=== PATIENT | male | born 2000 | race African-American/Black ===

== ENCOUNTER 2023-08-01 11:05 | Emergency (ER) | payer BC, SELFPAY ==
[2023-08-01 11:23] VITALS: BP 134/68; PULSE 88; RESP 19; TEMP 36.6; O2SAT 98; BMI 29.2
--- NOTE | 2023-08-01 11:26 | ED.URI ---
HPI - URI/Sore Throat General Chief Complaint: General Medical Stated Complaint: Sore throat Time Seen by Provider: 08/01/23 14:19 Source: patient Mode of arrival: ambulatory History of Present Illness HPI Narrative: 22-year-old male with presentation of sore throat and difficulty swallowing for approximately a month, patient has been on a course of amoxicillin without good resolution and then followed with a course of Augmentin. Related Data Previous Rx's Medication Instructions Recorded clindamycin HCl 300 mg capsule 600 mg (2 x 300 mg) PO TID 10 days 08/01/23 #60 caps prednisone 50 mg tablet 50 mg PO DAILY 4 days #4 tabs 08/01/23 Allergies Allergy/AdvReac Type Severity Reaction Status Date / Time No Known Allergies Allergy Verified 08/01/23 11:22 Review of Systems Review of Systems: Pertinent positives and negatives as stated in HPI [facility] Past Medical History Source: nursing notes reviewed Social History Social History Advance Directives: No Advance Directives Information Provided: No Physical Exam Vital Signs: Vital Signs: Last Vital Signs Temp 98 F 08/01/23 11:23 Pulse 88 08/01/23 11:23 Resp 19 08/01/23 11:23 BP 134/68 08/01/23 11:23 Pulse Ox 98 08/01/23 11:23 O2 Del Method Room Air 08/01/23 11:23 BMI result Body Mass Index 29.2 VITAL SIGNS: Reviewed. GENERAL: Well developed, well nourished, in no acute distress. HEAD: Normocephalic/atraumatic EYES: PERRLA, EOMI EARS: Ext canals without abnormality, TMs non-bulging and non-erythematous NOSE: Nares patent bilateral OROPHARYNX: no oral lesions noted, posterior pharynx mildly erythematous with edematous uvula and erythematous tonsillar enlargement/erythema/exudates NECK: Supple, no adenopathy LUNGS: Normal breath sounds. No adventitious sounds or accessory muscle use. SpO2<98> CARDIOVASCULAR: Regular rate and rhythm without noted murmurs ABDOMEN: Soft, non-tender, non-distended with bowel sounds. MUSCULOSKELETAL: No tenderness, deformities, or effusions noted on gross inspection. EXTREMITIES: No cyanosis, clubbing or edema. SKIN: Inspection of the skin reveals no rashes NEUROLOGIC: Alert and oriented x 4. Strength and sensation to light touch were grossly intact x 4. Course Course Course Narrative: This is a rapid medical exam. Deferred additional HPI, ROS, PE to primary provider. 22-year-old male with a history of peritonsillar abscess presents the ER with complaints of sore throat x 1 month despite a course of amoxicillin and a course of Augmentin. On exam patient has a right peritonsillar abscess. Tolerating secretions. Will need labs, viral testing, strep testing and CT VSS Medications Administered Generic Name Dose Route Start Last Admin Trade Name Freq PRN Reason Stop Dose Admin Sodium Chloride 1,000 mls @ 999 mls/hr 08/01/23 14:17 08/01/23 14:35 Ns IV 08/01/23 15:17 999 mls/hr .[id number] STA Administration Discontinued Medications Generic Name Dose Route Start Last Admin Trade Name Freq PRN Reason Stop Dose Admin Dexamethasone Sodium Phosphate 10 mg 08/01/23 14:17 08/01/23 14:32 Dexamethasone Sod Phosphate 10 Mg/Ml Vial IVPUSH 08/01/23 14:18 10 mg ONCE ONE Administration Clindamycin Phosphate 600 mg in 50 mls @ 100 mls/hr 08/01/23 14:17 08/01/23 14:37 Cleocin IV 08/01/23 14:46 100 mls/hr ONCE ONE Administration Ketorolac Tromethamine 30 mg 08/01/23 14:17 08/01/23 14:32 Ketorolac Tromethamine 30 Mg/Ml Vial IVPUSH 08/01/23 14:18 30 mg ONCE ONE Administration Medical Decision Making Medical Decision Making [facility] Narrative: 22-year-old male with history and clinical presentation most consistent with peritonsillar abscess, patient has no trismus, is tolerating oral secretions. I reviewed all investigations and there is a leukocytosis with a left shift but no anemia or thrombocytopenia. Chemistry indices without CHINO/electrolytes/liver enzyme derangements. Viral testing negative for influenza/RSV/COVID/rapid strep I attempted twice to aspirate purulence material with scant product obtained, suspect that this is secondary to this having been ongoing for 1 month. Patient is discharged with course of steroids as well as clindamycin with instructions to return to this emergency room on Wednesday but if he has acute worsening of symptoms he should return prior to that. He was also provided with an ENT referral. Differential Diagnosis Differential Diagnoses: The differential diagnosis associated with the presentation includes Please see the discussion above Admission/Observation Consideration of admission/observation: Escalation of care including admission/observation considered Please see the discussion above Lab Data MDM Lab Attestation statement: I reviewed the patient's lab results. Please see the discussion above 08/01/23 12:07 08/01/23 12:07 Labs: Lab Results 08/01/23 Range/Units 12:07 WBC 13.6 H (4.8-10.8) X10*3/uL RBC 5.66 (4.60-5.80) X10*6/uL Hgb 16.4 (14.0-18.0) g/dl Hct 48.1 (42.0-52.0) % MCV 85.0 (80.0-98.0) fL MCH 29.0 (27.0-33.0) pg MCHC 34.1 (31.0-36.0) g/dl RDW 12.9 (11.0-16.0) % Plt Count 204 (160-400) X10*3/uL MPV 8.6 L (9.4-12.4) fL Immature Gran % (Auto) 0.5 H (0.0-0.4) % Neut % (Auto) 83.2 H (45-73) % Lymph % (Auto) 9.0 L (20-40) % Howard % (Auto) 6.8 (2-11) % Eos % (Auto) 0.1 (0-4) % Baso % (Auto) 0.4 (0-2) % Lymph # (Auto) 1.2 (1.2-4.9) X10*3/uL Howard # (Auto) 0.9 (0.1-1.2) X10*3/uL Eos # (Auto) 0.0 (0.0-0.4) X10*3/uL Baso # (Auto) 0.1 (0.0-0.2) X10*3/uL Abs Immat Gran (auto) 0.07 H (0.00-0.03) X10*3/uL Absolute Neuts (auto) 11.3 H (2.0-8.3) x10*3/uL Absolute Nucleated RBC 0.000 (0.0-0.012) X10*3/uL Nucleated RBC % (auto) 0.0 (0.0-0.2) /100WBC Sodium 139 (135-145) mmol/L Potassium 4.1 (3.3-5.1) mmol/L Chloride 102 (96-108) mmol/L Carbon Dioxide 26 (22-29) mmol/L Anion Gap 15 (12-20) BUN 12 (9-16) mg/dL Creatinine 1.10 (0.5-1.4) mg/dL Estim Creat Clear Calc 96.2 Estimated GFR > 60 Random Glucose 94 (60-115) mg/dL Lactic Acid 0.8 (0.5-2.0) mmol/L Calcium 9.7 (8.4-10.2) mg/dL Total Bilirubin 0.8 (0.0-1.0) mg/dL Direct Bilirubin 0.3 (0.0-0.5) mg/dL AST 24 (5-37) U/L ALT 24 (0-40) U/L Alkaline Phosphatase 91 (39-117) U/L Total Protein 8.0 (6.5-8.0) g/dL Albumin 4.5 (3.5-5.0) g/dL Influenza Type A (PCR) NEGATIVE (Negative) Influenza Type B (PCR) NEGATIVE (Negative) RSV RNA Qual (PCR) NEGATIVE (Negative) SARS-CoV-2 RNA (RT-PCR) NEGATIVE (Negative) S. pyogenes GrpA RAFFI Negative (Negative) Procedures Abscess I/D Site: other (Peritonsillar) Side (if applicable): right Technique: needle aspiration Amount of fluid expressed (mL): 1 Sent for culture/gram staining?: No Irrigation: Yes Packing used?: none Discharge Plan Discharge Clinical Impression: Abscess, peritonsillar Patient Disposition: Home, Self-Care Instructions: Peritonsillar Abscess (ED) Additional Instructions: 1. Complete the entire course of antibiotics as prescribed. You may utilize [id number] Tylenol/ibuprofen as needed for discomfort. 2. You will return to this emergency room on Wednesday for a checkup. However, if your difficulty swallowing or you experience any difficulty with breathing you will return to the emergency room immediately. 3. You are being provided with an Ear, Nose, Throat specialist referral however you may reach out to the healthcare center at your school to see if they can assist you with this referral. I recommend that you call the office 1st thing tomorrow morning. Prescriptions: New prednisone 50 mg tablet 50 mg PO DAILY 4 Days Qty: 4 0RF clindamycin HCl 300 mg capsule 600 mg PO TID 10 Days Qty: 60 0RF Referrals: Zaid Delcid [Physician] -
[2023-08-01 12:15] LABS: MANUAL DIFF FLAG NO
[2023-08-01 12:17] LABS: Basophils Absolute Auto 0.1 X10*3/uL (0.0-0.2); Basophils Percent Auto 0.4 % (0-2); Eosinophils Percent Auto 0.1 % (0-4); Hematocrit 48.1 % (42.0-52.0); Hemoglobin 16.4 g/dl (14.0-18.0); Imm Gran Abs Auto 0.07 X10*3/uL (0.00-0.03); Imm Gran Pct Auto 0.5 % (0.0-0.4); Lymphocytes Absolute Auto 1.2 X10*3/uL (1.2-4.9); Mean Corpuscular HGB Conc 34.1 g/dl (31.0-36.0); Mean Platelet Volume 8.6 fL (9.4-12.4); Monocytes Absolute Auto 0.9 X10*3/uL (0.1-1.2); Monocytes Percent Auto 6.8 % (2-11); Neutrophils Absolute Auto 11.3 x10*3/uL (2.0-8.3); Neutrophils Percent Auto 83.2 % (45-73); Platelet Count 204 X10*3/uL (160-400); Red Blood Count 5.66 X10*6/uL (4.60-5.80); Red Cell Distribution Width 12.9 % (11.0-16.0); White Blood Count 13.6 X10*3/uL (4.8-10.8)
[2023-08-01 12:27] LABS: IDNOW Serial# 58CA691E
[2023-08-01 12:28] LABS: Strep A Nucleic Acid Negative (Negative)
[2023-08-01 12:31] LABS: Lactic Acid 0.8 mmol/L (0.5-2.0)
[2023-08-01 12:33] LABS: Alanine Aminotransferase 24 U/L (0-40); Albumin Level 4.5 g/dL (3.5-5.0); Alkaline Phosphatase 91 U/L (39-117); Anion Gap 15 (12-20); Aspartate Amino Transferase 24 U/L (5-37); Bilirubin Direct 0.3 mg/dL (0.0-0.5); Bilirubin Total 0.8 mg/dL (0.0-1.0); Blood Urea Nitrogen 12 mg/dL (9-16); Calcium 9.7 mg/dL (8.4-10.2); Carbon Dioxide 26 mmol/L (22-29); Chloride 102 mmol/L (96-108); Creatinine Clr Calc Pharmacy 96.2; Estimated Glomerular Filt Rate > 60; Glucose Random 94 mg/dL (60-115); Potassium 4.1 mmol/L (3.3-5.1); Sodium 139 mmol/L (135-145)
[2023-08-01 12:59] LABS: Influenza A PCR NEGATIVE (Negative); Influenza B PCR NEGATIVE (Negative); Resp Syncy Virus RNA Qual PCR NEGATIVE (Negative); SARS COV2 PCR INHOUSE NEGATIVE (Negative)
[2023-08-01] MEDS: Ketorolac Tromethamine 30 MG/ML VIAL IVPUSH (14:32)
[2023-08-01] MEDS: dexAMETHasone sod phosphate 10 MG/ML VIAL IVPUSH (14:32)
[2023-08-01] MEDS: 0.9 % Sodium Chloride 1,000 ML 999 ML IV (14:35)
[2023-08-01] MEDS: Clindamycin Phosphate/D5W 600 MG/50 ML PIGGYBACK 100 MG IV (14:37)
== END 2023-08-01 15:32 | disposition home or self-care (01) ==
PROVIDERS: Nurse Practitioner Family; Emergency Provider Student in an Organized Health Care Education/Training Program
DX: J36 Peritonsillar abscess (principal); J06.9 Acute upper respiratory infection, unspecified; Z11.52 Encounter for screening for COVID-19; Z20.822 Contact with and (suspected) exposure to COVID-19; Z79.899 Other long term (current) drug therapy
CPT/HCPCS: 0241U; 42700; 80048; 80076; 83605; 85025; 87040; 87651; 96361; 96374; 96375; 99284; J0736; J1100; J1885

== ENCOUNTER 2023-08-03 16:52 | Emergency (ER) | payer BC, SELFPAY ==
[2023-08-03 18:21] VITALS: BP 113/49; PULSE 74; RESP 16; TEMP 36.6; O2SAT 97; BMI 28.7
[2023-08-03 19:25] VITALS: BP 116/51; PULSE 59; RESP 14; TEMP 36.9; O2SAT 98
[2023-08-03 21:09] VITALS: BP 117/51; PULSE 60; RESP 14; TEMP 37; O2SAT 98
--- NOTE | 2023-08-03 21:35 | ED.GENADULT ---
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 He feels better overall and the swelling is getting better. He came here for ENT referral as Dr. Delcid is not able to see him MD complaint: ENT needs Onset (ago): day(s) (3) Location: mouth Radiation: non-radiation Severity: mild Pain Consistency: intermittent Relieving factors: none Exacerbating factors: other (swallowing) Associated symptoms: denies other symptoms Treatments prior to arrival: other (steroids and antibiotics) Related Data Previous Rx's Medication Instructions Recorded clindamycin HCl 300 mg capsule 600 mg (2 x 300 mg) PO TID 10 days 08/01/23 #60 caps prednisone 50 mg tablet 50 mg PO DAILY 4 days #4 tabs 08/01/23 Allergies Allergy/AdvReac Type Severity Reaction Status Date / Time No Known Allergies Allergy Verified 08/01/23 11:22 Review of Systems Review of Systems: Constitutional : No Fever, No Chills, No Fatigue ENT/Mouth : pos sore throat, No Rhinorrhea Eyes: No Eye Pain, No Swelling, No Redness Cardiovascular : No Chest Pain, No SOB, No Dyspnea on Exertion Respiratory : No Cough, No Sputum Gastrointestinal : No Nausea, No Vomiting, No Diarrhea, No abdominal Pain Musculoskeletal : No joint pain, No Myalgias, No Joint Swelling Skin : No Skin Lesions, No rash Neuro : No Weakness, No Numbness, No Dizziness, no Headache Heme/Lymph: No Bruising, No Bleeding, pos Lymphadenopathy All other systems reviewed and are negative PMFSH Past Medical History Attestation statement: The following information was validated with the patient. Source: old records reviewed Medical History Abscess, peritonsillar Social History Social History (Updated 08/03/23 @ 21:42 by Emma Mario DO) Patient Tobacco Use Status: Never used Tobacco Physical Exam ED Vital Signs: Vital Signs - 24 hr 08/03/23 18:21 08/03/23 19:25 08/03/23 21:09 Temperature 97.9 F 98.4 F 98.6 F Pulse Rate 74 59 60 Respiratory Rate 16 14 14 Blood Pressure 113/49 L 116/51 L 117/51 L Pulse Oximetry 97 98 98 Oxygen Delivery Method Room Air Room Air Room Air BMI result Body Mass Index 28.7 Appearance: Alert. Oriented X3. No acute distress. Eyes: Pupils equal, round and reactive to light. ENT: Pharynx mild swelling R side no sublingual or submandibular swelling no preuricular swelling, no trismus no drooling and normal voice, uvula is midline Neck: Normal inspection. Neck supple. CVS: Normal heart rate and rhythm. Pulses normal. Respiratory: No respiratory distress. Breath sounds normal. Abdomen: Soft and nontender. Skin: Skin warm and dry. Normal skin color. Normal skin turgor. Extremities: No lower extremity edema. No calf ttp Neuro: Oriented X 3. No motor deficit. No sensory deficit. 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 will given ENT referral Differential Diagnosis Differential Diagnoses: The differential diagnosis associated with the presentation includes CUT OFF [employer] SC[employer]ER, pharyngitis Admission/Observation Consideration of admission/observation: Escalation of care including admission/observation considered External Record Review External record reviewed: Inpatient record Tests considered The following testing was considered but not selected: CT scan but uvula midline and patinet much improved not indicated Discharge Plan Discharge Clinical Impression: Abscess, peritonsillar Patient Disposition: Home, Self-Care Instructions: Peritonsillar Abscess (ED) Additional Instructions: continue your antibiotics and steroids. clinically you are improving. return if you feel it is not getting better or you feel worse in any way. [facility] [place] [phone] ears nose throat [facility] [phone] Prescriptions: No Action prednisone 50 mg tablet 50 mg PO DAILY 4 Days Qty: 4 0RF clindamycin HCl 300 mg capsule 600 mg PO TID 10 Days Qty: 60 0RF
== END 2023-08-03 21:57 | disposition home or self-care (01) ==
PROVIDERS: Emergency Provider Emergency Medicine
DX: J36 Peritonsillar abscess (principal)
CPT/HCPCS: 10060; 42700; 99283; 99284